=== PATIENT | male | born 1990 | race Hispanic/Latino ===

== ENCOUNTER → 2018-07-05 | Outpatient (CLI) | payer OTHER ==
[~2018-07-05] MED LIST: PEPCID20 MG PO
--- NOTE | 2018-07-05 17:27 | Diagnostic Imaging Report ---
Frontal and lateral views of the chest. HISTORY: Strained left rib cage, pain left chest wall COMPARISON: None available. DISCUSSION: Lungs: The lungs are well inflated. No evidence of a consolidative pneumonia or pulmonary alveolar edema. Pleura: No pleural effusion or pneumothorax. Heart and mediastinum: The cardiomediastinal silhouette appears unremarkable. Bones and soft tissues: No acute displaced fracture. IMPRESSION: No acute radiographic abnormality. Signed by: Dr. Vinnie Langley D.O., M.M.M. on 07/05/2018 5:23 PM
--- NOTE | 2018-07-05 17:28 | Diagnostic Imaging Report ---
Frontal view of the chest and 2 additional views of the ribs. HISTORY: Strained left rib cage, pain left chest wall COMPARISON: None available. DISCUSSION: Lungs: The lungs are well inflated. No evidence of a consolidative pneumonia or pulmonary alveolar edema. Pleura: No pleural effusion or pneumothorax. Heart and mediastinum: The cardiomediastinal silhouette appears unremarkable. Bones and soft tissues: No acute displaced fracture. IMPRESSION: No acute radiographic abnormality. Signed by: Dr. Vinnie Langley D.O., M.M.M. on 07/05/2018 5:24 PM
== END ==
LOC: RAD 16:42
PROVIDERS: ATTEND Internal Medicine
DX: R07.89 Other chest pain (principal)
CPT/HCPCS: 71046; 71101

== ENCOUNTER → 2018-07-15 | Outpatient (CLI) | payer OTHER ==
[~2018-07-15] MED LIST changes: +IOPAMIDOL 370 MG/ML 200 ML INFUS..BTL INJ ONE; +SODIUM CHLORIDE 0.9% 50ML 50 ML ONE
--- NOTE | 2018-07-15 11:22 | Diagnostic Imaging Report ---
EXAM: CT Abdomen and Pelvis WITH contrast INDICATION: Intermittent right-sided abdominal pain. COMPARISON: None. TECHNIQUE: Abdomen and pelvis were scanned utilizing a multidetector helical scanner from the lung base to the pubic symphysis after administration of IV contrast. Coronal and sagittal reformations were obtained. Routine protocol was performed. Scan was performed when during portal venous phase. IV CONTRAST: 100 mL of Isovue 370 COMPLICATIONS: None RADIATION DOSE: Total DLP: 193.4 mGy*cm Estimated effective dose: (DLP x 0.015 x size factor) mSv Dose modulation, iterative reconstruction, and/or weight based adjustment of the mA/kV was utilized to reduce the radiation dose to as low as reasonably achievable. FINDINGS: LINES and TUBES: None. LOWER THORAX: Unremarkable HEPATOBILIARY: No evidence of focal lesion. No biliary ductal dilation. GALLBLADDER: No radio-opaque stones or sludge. No wall thickening. SPLEEN: No splenomegaly. Subcentimeter hypodensity within the spleen is incompletely characterized. PANCREAS: No focal masses or ductal dilatation. ADRENALS: No adrenal nodules KIDNEYS/URETERS: Kidneys enhance symmetrically. No evidence of hydronephrosis, solid mass, or stone. GI TRACT: No evidence of bowel obstruction. The appendix is normal. There is mild jejunal wall thickening, for example on series 2, image 40 PELVIC ORGANS/BLADDER: Unremarkable. LYMPH NODES: No lymphadenopathy. VESSELS: Unremarkable. PERITONEUM / RETROPERITONEUM: No free air or fluid. BONES AND SOFT TISSUES: Unremarkable. CONCLUSION: Jejunal wall thickening, suggestive of enteritis, which may be infectious or inflammatory. Signed by: Dr. Saadia Graves MD on 07/15/2018 11:19 AM
== END ==
LOC: CT 09:52
PROVIDERS: ATTEND Internal Medicine
DX: R10.31 Right lower quadrant pain (principal)
CPT/HCPCS: 74177; Q9967